=== PATIENT | male | born 2000 | race Caucasian/White ===

== ENCOUNTER 2022-10-12 13:07 | Outpatient (CLI) | payer BC, SELFPAY ==
[2022-10-12 13:51] LABS: PCR FLU A Negative PCR FLU A (Negative); PCR FLU B Negative PCR FLU B (Negative); PCR RSV Negative PCR RSV (Negative)
[2022-10-12 13:52] LABS: SARS PCR* POSITIVE SARS-CoV-2 (Negative)
== END 2022-10-12 13:08 | disposition home or self-care (01) ==
LOC: LKVREF 13:12
PROVIDERS: Visit Provider Nurse Practitioner Family
DX: U07.1 COVID-19 (principal); R50.9 Fever, unspecified
CPT/HCPCS: 87502; 87634; 87635